=== PATIENT | male | born 1965 | race Caucasian/White ===

== ENCOUNTER → 2017-09-23 | Outpatient (CLI) | payer OTHER ==
[~2017-09-23] MED LIST: FUROSEMIDE INJ 10 MG/ML 4 ML VIAL ONE
--- NOTE | 2017-09-23 18:56 | Diagnostic Imaging Report ---
Renal Scan with Lasix [place]out Clinical information: 52 M with renal calculi Technique: Following intravenous administration of 10.7 mCi of Tc-99m MAG3, dynamic images of the kidneys in the posterior projection were obtained through 40 minutes. Lasix 40 mg was administered intravenously at 10 minutes post injection of the tracer. Report: Left kidney: Perfusion of the left kidney is prompt. The kidney has a normal reniform shape with smooth contours. A photopenic defect is seen in the lower half of the kidney that later fills with tracer. Extraction of tracer from the blood pool is normal. Clearance of tracer from the renal parenchyma is prompt. The pelvicalyceal system is not dilated although mild calicectasis is present throughout the kidney.. Physiologic pooling of tracer within the pelvicalyceal system is seen. Drainage of tracer from the pelvicalyceal system is prompt and adequate prior to administration of Lasix. Some stasis of tracer is seen within the left ureter but this clears rapidly following administration of Lasix. The ureter does not appear dilated. Right kidney: Perfusion to the right kidney is prompt. The right kidney has a normal reniform shape. Extraction of tracer by the renal parenchyma is normal. Clearance of tracer from the renal parenchyma is prompt. The pelvicalyceal system is not dilated although very mild caliectasis is present throughout the kidney. Physiologic pooling of tracer within the pelvicalyceal system is seen. Drainage of tracer from the pelvicalyceal system is prompt and adequate prior to administration of Lasix. Some stasis of tracer is seen within the right ureter but this clears rapidly following administration of Lasix. The ureter does not appear dilated.. Differential renal function: The left kidney contributes 49% of total renal function and the right kidney contributes 51% (normal 43-57%). Impression: 1. The function of the left kidney is generally normal. No hydronephrosis is present. No physiologically significant obstruction of the renal collecting system is present. 2. The function of the right kidney is generally normal. No hydronephrosis is present. No physiologically significant obstruction of the renal collecting system is present. 3. The differential renal function is preserved. Signed by: Dr. Leatha Fisher M.D. on 09/23/2017 6:52 PM
== END ==
LOC: NM 15:25
PROVIDERS: ATTEND Urology
DX: N20.0 Calculus of kidney (principal)
CPT/HCPCS: 78708; A9562; J1940

== ENCOUNTER → 2017-12-13 | Outpatient (CLI) | payer OTHER ==
--- NOTE | 2017-12-13 16:22 | Diagnostic Imaging Report ---
EXAM: Renal Ultrasound INDICATION: \S\CYST OF KIDNEY COMPARISON: None TECHNIQUE: Transverse and longitudinal images of the kidneys and bladder were obtained. FINDINGS: Right Kidney: Size: 12.3 x 6.3 x 4.2 cm Echogenicity: Normal Parenchymal thickness: Normal Collecting system: No hydronephrosis Stones: None Cyst/Mass: None Left Kidney: Size: 2.3 x 6.2 x 4.9 cm Echogenicity: Normal Parenchymal thickness: Normal Collecting system: No hydronephrosis Stones: 1.9 cm echogenic shadowing structure in the inferior pole with twinkle artifact Cyst/Mass: Inferior pole 3 x 2.8 x 3.6 cm anechoic cyst. Bladder: Normal. Bilateral ureteral jets visualized. Prostate: 2.3 x 3.2 x 4.2 cm (15.9 cc). IMPRESSION: Left renal simple cyst. Left nephrolithiasis. Signed by: DR. Trenton Melgar MD on 12/13/2017 4:19 PM
--- NOTE | 2017-12-13 16:26 | Diagnostic Imaging Report ---
EXAM: ABDOMEN-1VIEW (KUB), DATE: 12/13/2017 3:04 PM INDICATION: Follow-up kidney stones COMPARISON: Same day renal ultrasound. FINDINGS: LINES/TUBES: None BOWEL PATTERN: No evidence for obstruction. SOFT TISSUES: Left renal 1.4 x 1 cm calcification projects over the inferior pole of the left renal silhouette. Vasectomy clips. No mass effect. LUNG BASES: Not included BONES: No acute findings. IMPRESSION: Left nephrolithiasis. Signed by: DR. Trenton Melgar MD on 12/13/2017 4:22 PM
== END ==
LOC: US 14:54
PROVIDERS: ATTEND Urology
DX: N20.0 Calculus of kidney (principal); N28.1 Cyst of kidney, acquired
CPT/HCPCS: 74018; 76770

== ENCOUNTER → 2018-02-25 | Outpatient (CLI) | payer OTHER ==
--- NOTE | 2018-02-25 12:42 | Diagnostic Imaging Report ---
Exam: Abdominal film Clinical History: Renal calculi Comparison: KUB DISCUSSION: Frontal view of the abdomen shows a nonobstructive bowel gas pattern with mild to moderate amount of retained stool.There are no dilated, air-filled loops of bowel. 1.9 and 1.0 cm radiopaque densities project in the inferior pole of the left renal shadow, which may represent separate calculi versus portions of a static horn calculus. Ill-defined 0.7 cm radiopaque density projecting in the inferior pole of the right kidney. No radiopaque densities project over the expected course of the ureters or bladder. Stable 0.8 x 0.8 cm calcific density projecting over the right aspect of the symphysis. No acute bone abnormality. IMPRESSION: 1. 1.9 and 1.0 cm radiopaque densities projecting in the inferior pole of the left renal shadow, which have increased in size when compared to prior exam, and may represent 2 separate calculi versus portions of a staghorn calculus. 2. Ill-defined 0.7 cm density projecting in the inferior pole of the right kidney may represent a nonobstructing calculus. The staff physician below has personally reviewed this exam on the date of dictation. Signed by: Dr. Norbert Jones M.D. on 02/25/2018 12:39 PM
== END ==
LOC: RAD 12:01
PROVIDERS: ATTEND Urology
DX: N20.0 Calculus of kidney (principal)
CPT/HCPCS: 74018

== ENCOUNTER → 2018-05-12 | Outpatient (CLI) | payer OTHER ==
--- NOTE | 2018-05-12 11:16 | Diagnostic Imaging Report ---
Exam: Abdominal film Clinical History: Renal calculus Comparison: 02/25/2018 DISCUSSION: 2 adjacent calculi project over the left lower pole, each measuring millimeters. Stone burden has decreased compared to 02/25/2018 in keeping with reported history of recent lithotripsy. Previously described suspected right renal calculus is poorly visualized on the current study likely related to overlying bowel contents. Unchanged 8 mm calcification adjacent to the right side of the symphysis pubis which may lie within the prostate. Bowel gas pattern is nonobstructive. Degenerative changes of the lumbar spine with otherwise intact regional skeletal structures. IMPRESSION: Decreased left lower pole stone burden relative to 02/25/2018 in keeping with reported history of recent lithotripsy. Signed by: Dr. George Crawford M.D. on 05/12/2018 11:13 AM
== END ==
LOC: RAD 05-08 12:43
PROVIDERS: ATTEND Urology
DX: N20.0 Calculus of kidney (principal)
CPT/HCPCS: 74018

== ENCOUNTER → 2018-09-19 | Outpatient (CLI) | payer OTHER ==
--- NOTE | 2018-09-19 14:48 | Diagnostic Imaging Report ---
Exam: Abdominal film Clinical History: Renal calculus Comparison: May 12, 2018. DISCUSSION: Nonobstructive bowel gas pattern. Mild amount of retained stool. Left renal calcifications largest 8 mm. Other prior 8 mm calculus not present. IMPRESSION: Left renal calculi, largest 9 mm. Signed by: Dr. Brian Patino M.D. on 09/19/2018 2:44 PM
== END ==
LOC: RAD 13:18
PROVIDERS: ATTEND Urology
DX: N20.0 Calculus of kidney (principal)
CPT/HCPCS: 74018

== ENCOUNTER → 2018-12-19 | Outpatient (CLI) | payer BC ==
--- NOTE | 2018-12-19 12:54 | Diagnostic Imaging Report ---
TECHNIQUE: Single View of the Abdomen. INDICATION: ^[id number] ^[id number] ^CALCULUS OF KIDNEY. COMPARISON: Radiographs dating back to 12/13/2017 FINDINGS/IMPRESSION: There are several stones over the left renal silhouette which measure up to 8 mm and are unchanged. A calcification over the right pubic symphysis is indeterminate but could be in the overlying soft tissues and is unchanged dating back to 12/13/2017. The bowel gas pattern is normal. No acute bony abnormality. Signed by: Harsha Wilder JR, MD on 12/19/2018 12:50 PM
== END ==
LOC: RAD 11:08
PROVIDERS: ATTEND Urology
DX: N20.0 Calculus of kidney (principal)
CPT/HCPCS: 74018

== ENCOUNTER → 2019-03-02 | Outpatient (CLI) | payer BC, OTHER ==
--- NOTE | 2019-03-02 11:54 | Diagnostic Imaging Report ---
Exam: KUB - 2 views Indication: Renal calculus Comparison: KUB of 12/19/2018 Findings: Again seen are renal calculi at the lower pole of the left kidney, the largest of which measures up to 9 mm a smaller left lower pole calculus measures up to 2 mm. No radiographically apparent right renal calculi. Objective bowel gas pattern. No free air. Osseous structures appear unremarkable. Impression: Left renal calculi measuring up to 9 mm. Signed by: Yajaira Markham MD on 03/02/2019 11:51 AM
== END ==
LOC: RAD 10:29
PROVIDERS: ATTEND Urology
DX: N20.0 Calculus of kidney (principal)
CPT/HCPCS: 74018

== ENCOUNTER → 2019-08-25 | Outpatient (CLI) | payer BC ==
--- NOTE | 2019-08-26 09:37 | Diagnostic Imaging Report ---
Exam: KUB - 2 views Indication: Renal calculus Comparison: KUB of 12/19/2018 Findings: Unchanged left renal calculi measuring up to 9 mm. No radiographically apparent right renal calculi. No acute osseous injury. Nonobstructive bowel gas pattern. No free air. Phleboliths in the pelvis. Impression: Unchanged left renal calculi measure up to 9 mm. Signed by: Yajaira Markham MD on 08/26/2019 9:25 AM
== END ==
LOC: RAD 15:22
PROVIDERS: ATTEND Urology
DX: N20.0 Calculus of kidney (principal)
CPT/HCPCS: 74018

== ENCOUNTER → 2020-02-26 | Outpatient (CLI) | payer BC | LOC: RAD 12:18 | PROVIDERS: ATTEND Urology | DX: N20.0 Calculus of kidney (principal) | CPT/HCPCS: 74018 ==

== ENCOUNTER → 2020-07-07 | Outpatient (CLI) | payer BC | LOC: RAD 14:27 | PROVIDERS: ATTEND Urology | DX: N20.0 Calculus of kidney (principal) | CPT/HCPCS: 74018 ==

== ENCOUNTER → 2020-07-29 | Day surgery (SDC) | payer BC ==
[~2020-07-29] MED LIST changes: +ALLOPURINOL100 MG PO; +AMLODIPINE BESY10 MG PO; +CEFTRIAXONE SOD 1 GM VIAL ONE; +DEXAMETHASONE SOD PHOS INJ 4 MG/ML VIAL ONE; +FLOMAX0.4 MG PO; -FUROSEMIDE INJ 10 MG/ML 4 ML VIAL ONE; +LIDOCAINE HCL 2% LOCAL INJ 5 ML SDV VIAL INJ ONE; +LIPITOR20 MG PO; +ONDANSETRON HCL INJ 2MG/ML 2ML 2 MG/ML VIAL ONE; +PREVACID30 M1 PO; +PROPOFOL IV EMULSION 10 MG/ML 20 ML VIAL ONE; +SEVOFLURANE INHAL SOLN 250 ML PEN BTL ONE; +SODIUM CHLORIDE 0.9% 50ML 50 ML ONE; +WELCHOL625 MG PO
[2020-07-29 09:58] VITALS: BP 117/83
== END | disposition home or self-care (01) ==
LOC: OR 07:05
PROVIDERS: ATTEND Urology
DX: N20.0 Calculus of kidney (principal); N40.1 Benign prostatic hyperplasia with lower urinary tract symptoms; N13.8 Other obstructive and reflux uropathy; R39.14 Feeling of incomplete bladder emptying; R35.1 Nocturia; N28.1 Cyst of kidney, acquired; I10 Essential (primary) hypertension; Z01.810 Encounter for preprocedural cardiovascular examination; Z01.812 Encounter for preprocedural laboratory examination; Z01.818 Encounter for other preprocedural examination; Z20.822 Contact with and (suspected) exposure to COVID-19
CPT/HCPCS: 50590; 74018; 93005; J0696; U0002

== ENCOUNTER → 2020-11-25 | Outpatient (CLI) | payer OTHER ==
[~2020-11-25] MED LIST changes: -CEFTRIAXONE SOD 1 GM VIAL ONE; -DEXAMETHASONE SOD PHOS INJ 4 MG/ML VIAL ONE; -LIDOCAINE HCL 2% LOCAL INJ 5 ML SDV VIAL INJ ONE; -ONDANSETRON HCL INJ 2MG/ML 2ML 2 MG/ML VIAL ONE; -PROPOFOL IV EMULSION 10 MG/ML 20 ML VIAL ONE; -SEVOFLURANE INHAL SOLN 250 ML PEN BTL ONE; -SODIUM CHLORIDE 0.9% 50ML 50 ML ONE
== END ==
LOC: RAD 12:05
PROVIDERS: ATTEND Urology
DX: N20.0 Calculus of kidney (principal)
CPT/HCPCS: 74018

== ENCOUNTER → 2024-02-21 | Day surgery (SDC) | payer OTHER ==
[2024-02-17 16:32] LABS: ANION GAP 15.8 mmol/L (8-16); CALCIUM 9.8 mg/dL (8.4-10.2); CREATININE, SERUM 1.47 mg/dL (0.72-1.25); POTASSIUM 3.8 mmol/L (3.5-5.1)
[~2024-02-21] MED LIST changes: +ACETAMINOPHEN 1000 MG/100 ML 100 ML IV ONE; +AMLODIPINE-OLM1 EAC3 PO; +DEXAMETHASONE SOD PHOS INJ 4 MG/ML SDV ONE; +FENTANYL CITRATE/PF 100MCG/2 ML INJ ONE; +HYDROCHLOROTH12.5 MG PO; +LIDOCAINE HCL 2% LOCAL 20 ML VIAL ONE; +LUNESTA3 MG PO; +ONDANSETRON HCL INJ 2MG/ML 2ML 2 MG/ML VIAL ONE; +PHENYLEPHRINE HCL 1% 10 MG/ML VIAL ONE; +PROPOFOL IV EMULSION 10 MG/ML 20 ML VIAL ONE; +REQUIP PO; +[UNRECOGNIZED DRUG - OTHER] SQ
[2024-02-21] MEDS: LACTATED RINGER'S 1,000 ML ONE (06:29)
[2024-02-21] MEDS: CEFTRIAXONE 1 GM VIAL ONE (06:29)
[2024-02-21 10:14] VITALS: BP 116/66; PULSE 72; RESP 17; O2SAT 98
== END | disposition home or self-care (01) ==
LOC: OR 06:00
PROVIDERS: ATTEND Urology
DX: N20.0 Calculus of kidney (principal); G47.33 Obstructive sleep apnea (adult) (pediatric); I10 Essential (primary) hypertension; E78.5 Hyperlipidemia, unspecified; K21.9 Gastro-esophageal reflux disease without esophagitis; Z01.810 Encounter for preprocedural cardiovascular examination; Z01.812 Encounter for preprocedural laboratory examination; Z79.899 Other long term (current) drug therapy
CPT/HCPCS: 36415; 50590; 74018; 80048; 93005; J0131; J0696; J1100; J2003; J2371; J2405; J2704; J3010; J7121

== ENCOUNTER → 2024-03-06 | Day surgery (SDC) | payer OTHER ==
[~2024-03-06] MED LIST changes: +EPHEDRINE SULFATE INJ 50 MG/ML VIAL ONE; -LIDOCAINE HCL 2% LOCAL 20 ML VIAL ONE; +LIDOCAINE HCL 2% LOCAL INJ 5 ML SDV VIAL INJ ONE; +ROPINIROLE HCL2 MG PO; +TESTOSTERONE5000 GM SQ
[2024-03-06] MEDS: CEFTRIAXONE 1 GM VIAL ONE (06:16)
[2024-03-06] MEDS: LACTATED RINGER'S 1,000 ML ONE (06:16)
[2024-03-06 08:35] VITALS: BP 117/76; PULSE 83; RESP 15; O2SAT 96
== END | disposition home or self-care (01) ==
LOC: OR 05:42
PROVIDERS: ATTEND Urology
DX: N20.0 Calculus of kidney (principal); G47.33 Obstructive sleep apnea (adult) (pediatric); I10 Essential (primary) hypertension; K21.9 Gastro-esophageal reflux disease without esophagitis; Z79.899 Other long term (current) drug therapy
CPT/HCPCS: 50590; 74018; J0131; J0696; J1100; J2003; J2371; J2405; J2704; J3010; J7121